=== PATIENT | male | born 1990 | race Two or more races ===

== ENCOUNTER 2017-10-20 21:53 | Emergency (ER) | payer OTHER ==
[~2017-10-20] VITALS: Ht 172.7 cm; Wt 86.2 kg
--- NOTE | 2017-10-20 22:06 | NUR ---
PT TO ER BED 11. BIBRA FROM HOME FOR GRANDMAL X 2 SEIZURES, PRIOR HX. PT ON KEPPRA. SIZURES WITNESSED BY FAMILY. NO TRAUMA NOTED AT THIS TIME. SEIZURE PRECAUTIONS IN PLACE. 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 PT VSS/NAD NOTED/RESP EVEN UNLABORED/SKIN WARM AND DRY/DENIES N-V-D/AFEBRILE/AOX4. AWAITING MD SHAH.
--- NOTE | 2017-10-20 22:15 | NUR ---
MD AT BEDSIDE SPEAKING WITH PT. MOTHER AT BEDSIDE.
[2017-10-20] MEDS ORDERED: LORAZEPAM INJ 2 MG/ML VIAL ONE (22:20)
[2017-10-20] MEDS ORDERED: LORAZEPAM INJ 2 MG/ML VIAL IV ONE (22:30)
--- NOTE | 2017-10-20 22:39 | NUR ---
LAB AT THE BEDSIDE FOR DRAW.
[2017-10-20 22:55] LABS: BASOPHILS % (AUTO) 0.7 % (0.0-2.0); EOSINOPHILS % (AUTO) 2.7 % (0.0-6.0); HEMATOCRIT 47 % (39-51); HEMOGLOBIN 15.9 g/dL (13.5-17.5); LYMPHOCYTES # (AUTO) 1.5 /CMM (0.8-4.8); LYMPHOCYTES % (AUTO) 25.3 % (20.0-44.0); MEAN CORPUSCULAR HGB CONC 34 g/dl (31.0-36.0); MEAN CORPUSCULAR VOLUME 84 fL (80-96); MONOCYTES # (AUTO) 0.4 /CMM (0.1-1.30); MONOCYTES % (AUTO) 6.5 % (2.0-12.0); NEUTROPHILS # (AUTO) 3.8 /CMM (1.8-8.9); NEUTROPHILS % (AUTO) 64.8 % (43.0-81.0); PLATELET COUNT (AUTO) 235 /CMM (150-450); RDW COEFFICIENT OF VARIATION 12.5 (11.5-15.0); RED BLOOD CELL COUNT(AUTO) 5.59 MIL/uL (4.5-6.0); WHITE BLOOD COUNT (AUTO) 5.8 K/uL (4.3-11.0)
[2017-10-20 22:58] LABS: CALCIUM, SERUM 8.8 mg/dL (8.5-10.1); POTASSIUM 4.1 mmol/L (3.5-5.1)
--- NOTE | 2017-10-20 23:33 | NUR ---
IV removed. Catheter intact and site benign. Pressure and 4x4 applied to site. No bleeding noted. Patient discharged with family to home in stable condition. Written and verbal after care instructions given, patient instructed not to drive. Patient and family verbalize understanding of instruction. Patient is awake and alert to self, day, and place. Patient ambulatory with a steady gait.
[2017-10-20 23:35] VITALS: BP 120/79
== END 2017-10-20 23:36 | disposition home or self-care (01) ==
LOC: ER 21:55
DX: G40.909 Epilepsy, unspecified, not intractable, without status epilepticus (principal)
CPT/HCPCS: 36415; 80048-TC; 82542; 85025-TC; A4606; J2060; Z7610